=== PATIENT | female | born 1975 | race Caucasian/White ===

== ENCOUNTER 2022-09-16 08:07 | Outpatient (CLI) | payer MEDICARE, OTHER ==
[~2022-09-16 08:07] MED LIST: ARIP5TAB10 PO; CITA40TA22 PO; CLON2TAB11 PO; CYCL-289 PO; FLUT1DIS27 IH; HYDR1TAB93 PO; MONT10TA22 PO; MULT1CAP34 PO; MULT1TAB11 PO; POTA8TAB3 PO; PREG50CA PO; TRAZ-257 PO
== END 2022-09-16 23:59 | disposition home or self-care (01) ==
LOC: LAB 08:07
PROVIDERS: ATTEND Orthopaedic Surgery Sports Medicine
DX: Z01.812 Encounter for preprocedural laboratory examination (principal); Z20.822 Contact with and (suspected) exposure to COVID-19

== ENCOUNTER 2022-09-18 07:33 | Day surgery (SDC) | payer MEDICARE, OTHER ==
[~2022-09-18 07:33] MED LIST changes: +BUPIVACAINE PF 0.5% 30 ML VIAL ONE; +TRIAMCINOLONE ACETONIDE 40 MG/1 ML VIAL ONE; +VANCOMYCIN 1000 MG VIAL ONE
[2022-09-18] MEDS ORDERED: LIDOCAINE-MPF 2% 5 ML VIAL ONE (07:39)
[2022-09-18] MEDS ORDERED: ONDANSETRON 4 MG/2 ML VIAL ONE (07:39)
[2022-09-18] MEDS ORDERED: PROPOFOL 200 MG/20 ML BOTTLE ONE (07:39)
[2022-09-18] MEDS ORDERED: CEFAZOLIN 1 G VIAL ONE (07:39)
[2022-09-18] MEDS ORDERED: DEXAMETHASONE SOD PHOSPHATE 4 MG INJ ONE (07:39)
[2022-09-18] MEDS ORDERED: GLYCOPYRROLATE 0.2 MG/ML VIAL ONE (07:39)
[2022-09-18] MEDS ORDERED: PHENYLEPHRINE 10 MG/1 ML VIAL ONE (07:39)
[2022-09-18] MEDS ORDERED: FENTANYL CITRATE 100 MCG/2 ML AMPUL ONE (08:38)
[2022-09-18] MEDS ORDERED: KETAMINE HCL 500 MG/10 ML INJ ONE (08:39)
[2022-09-18 08:46] LABS: CREATININE 0.9 mg/dL (0.6-1.3); POTASSIUM 3.8 mmol/L (3.5-5.1)
[2022-09-18] MEDS ORDERED: SUCCINYLCHOLINE CHLORIDE 200 MG/10 ML VIAL ONE (08:51)
[2022-09-18] MEDS ORDERED: FAMOTIDINE. 20 MG/2 ML VIAL IV ONE (08:51)
[2022-09-18] MEDS ORDERED: ROCURONIUM BROMIDE 50 MG/5 ML VIAL ONE (08:51)
[2022-09-18 08:52] LABS: BILIRUBIN,TOTAL 0.3 mg/dL (0.2-1.0); TOTAL PROTEIN, SERUM 6.8 g/dL (6.4-8.2)
[2022-09-18] MEDS ORDERED: ALBUTEROL SULFATE 8 GM HFA.AER.AD ONE (09:06)
[2022-09-18] MEDS ORDERED: BUPIVACAINE PF 0.5% 30 ML VIAL ONE (09:24)
[2022-09-18] MEDS ORDERED: LIDOCAINE HCL 1% 20 ML VIAL ONE (09:24)
== END 2022-09-18 13:40 | disposition home or self-care (01) ==
LOC: DS 07:33
PROVIDERS: ATTEND Orthopaedic Surgery Sports Medicine
DX: G56.02 Carpal tunnel syndrome, left upper limb (principal); E34.51 Complete androgen insensitivity syndrome; M75.52 Bursitis of left shoulder; I25.10 Atherosclerotic heart disease of native coronary artery without angina pectoris; F41.9 Anxiety disorder, unspecified; F32.9 Major depressive disorder, single episode, unspecified; M19.90 Unspecified osteoarthritis, unspecified site; I12.9 Hypertensive chronic kidney disease with stage 1 through stage 4 chronic kidney disease, or unspecified chronic kidney disease; E11.22 Type 2 diabetes mellitus with diabetic chronic kidney disease; N18.9 Chronic kidney disease, unspecified; D64.9 Anemia, unspecified; F17.210 Nicotine dependence, cigarettes, uncomplicated; Z88.2 Allergy status to sulfonamides; Z88.8 Allergy status to other drugs, medicaments and biological substances; Z79.899 Other long term (current) drug therapy; Z98.890 Other specified postprocedural states
CPT/HCPCS: 64721; 80053; 36415; 25000; 20610; J3490 ×8; J0690; J1100; J2405; J2370; J0330; J3301; J3370; J3010; J7120; A4649; A4663; J3535